=== PATIENT | female | born 1985 | race Caucasian/White ===

== ENCOUNTER 2018-11-07 05:45 | Observation (INO) | payer OTHER ==
[2018-11-04 10:41] LABS: BASOPHILS 0.1 % (0-2); EOSINOPHILS 1.3 % (0-7); HEMATOCRIT 43.5 % (36.0-48.0); HEMOGLOBIN 14.8 g/dL (12-16); IMMATURE GRANULOCYTES 0.1 % (0-5); LYMPHOCYTES 29.7 % (15-50); MCH 30.8 pg (26.0-34.0); MCV 90.6 fL (80.0-100.0); MEAN PLATELET VOLUME 10.6 fL (7.4-10.4); MONOCYTES 10.8 % (2-11); PLATELET COUNT 261 10x3/uL (130-400); RDW 13.1 % (11.5-14.5); WBC 8.2 10x3/uL (4.8-10.8)
[2018-11-04 10:51] LABS: CALC OSMOLALITY 274 mosm/kg (275-300); CALCIUM 9.3 mg/dL (8.5-10.1); CARBON DIOXIDE 28.8 mmol/L (21.0-32.0); CHLORIDE - SERUM 103 mmol/L (98-107); CREATININE - SERUM 0.7 mg/dL (0.6-1.3); GLUCOSE 80 mg/dL (74-106); SODIUM 138 mmol/L (136-145); UREA NITROGEN 13 mg/dL (7-18); eGFR NON AFRICAN AMERICAN > 90 mL/min (90-120)
[~2018-11-07] VITALS: Ht 165.1 cm; Wt 78.6 kg
[2018-11-07] VITALS (11 sets, daily range): BP systolic 94–125; BP diastolic 59–76; Ht 165.1 cm; Wt 78.6 kg
--- NOTE | ~2018-11-07 | OP ---
PATIENT NAME: TY NOBLES MEDICAL RECORD: [id number] :87 LOCATION:[id number] ADMISSION DATE: SURGEON: DOC CAGLE MD DATE OF OPERATION: 11/07/2018 PREOPERATIVE DIAGNOSES: 1. ABEL 2. 2. Dysfunctional uterine bleeding. POSTOPERATIVE DIAGNOSES: 1. ABEL 2. 2. Dysfunctional uterine bleeding. PROCEDURE: 1. Diagnostic laparoscopy. 2. Bilateral salpingectomy. 3. Total laparoscopic hysterectomy. SURGEON: Doc Cagle MD [employer]AL[employer] ASSURANCE SUPERVISOR CHASSIS: JESSIE Arrington. ANESTHETIC: General. FINDINGS: Uterus is slightly enlarged and boggy. The tubes and ovaries were unremarkable. What was visualized at the patient's upper abdominal anatomy and pelvic anatomy is unremarkable. SPECIMENS REMOVED: Uterus with cervix and bilateral tubes. SPECIMEN DISPOSITION: Pathology. ESTIMATED BLOOD LOSS: Less than or equal to 150 cc. FLUIDS: 2000 cc lactated Ringer's. URINE OUTPUT: 500 cc of clear urine. COMPLICATIONS: None. DRAINS: Alejo to gravity discontinued upon transfer to the finney. INDICATIONS: The patient is a 33-year-old female with a history of dysfunctional uterine bleeding using a Mirena IUD to treat the same. The patient has recently had colposcopy directed biopsy demonstrating ABEL 2. The patient has no future fertility desires and requests definitive treatment. DESCRIPTION OF PROCEDURE: After informed consent was assured, the patient was taken to the operating room where anesthetic was obtained. The patient was now prepped and draped after being placed in [facility] stir[facility]. The patient's legs were positioned and uterine manipulator placed after removal of the Mirena IUD. The legs are now dropped and attention was directed to the umbilicus where an incision was made to accommodate a 5-mm trocar, which was inserted and pneumoperitoneum developed. With the patient in steep Trendelenburg position, accessory ports were placed in the left and right lower quadrants. All sites OPERATIVE REPORT [id number] TY NOBLES were injected with 0.25% Marcaine without epinephrine. Using a grasper, the right tube was elevated and with a Thunderbeat coagulation cutter, the attachments of the tube to the adnexa was serially compressed, coagulated, and . This dissection was carried over the uterine ovarian ligaments and round ligaments. The anterior leaf of the broad ligament was opened and the bladder flap developed to the midline. The posterior tissues were dissected free of the vascular bundle and then the uterine vessels were compressed, coagulated, and . Attention was now directed to the left side where the left tube was elevated from the right and again removed from its attachments with the Thunderbeat coagulation cutter. The dissection again carried over the uteroovarian and round ligaments. The anterior leaf of the broad ligament was opened and the bladder flap now fully developed. The vessels of the left side are now compressed, coagulated, and at the level of the internal os. Dissection begins at the 6 o'clock and concludes at the 12. This was facilitated with palpation of the uterine manipulator cup. This was repeated on the contralateral side, this time carrying the dissection from the 12-6 o'clock position. The uterus was now pulled into the vagina and the pelvis irrigated. The uterus was now removed after the legs were positioned for the vaginal close. The cuff was assessed and a modified Benjamin stitch was placed. The cuff was now closed in anterior to posterior fashion with the last stitch being tied the modified Benjamin's, which has been tagged at this point. The cuff was inspected and adequate hemostasis has been achieved. Pneumoperitoneum was reestablished and visualization of the pelvis reveals a small amount of bleeding from the left ovary and this was addressed with the Thunderbeat coagulation cutter. After coagulating the bleeding site on the left ovary, the pelvis again was irrigated and irrigant removed. The pneumoperitoneum was released as the accessory ports were removed under direct visualization. Primary trocar was removed and all sites closed with subcuticular stitch. Sponge, lap, and needle counts correct times 2 at the close of this procedure. TRANSINT:[id number] Voice Confirmation ID: [id number] DOCUMENT ID: [id number] DOC CAGLE MD CC: [id number] DICTATION DATE: 11/07/18913 TURN OUT: 11/07/18 1036 REG [facility] [address] [place] [address]
[~2018-11-07 05:45] MED LIST: ALLEGRA D; TYLENOL #4 W/CO1 TAB PO; [UNRECOGNIZED DRUG - OTHER]
[2018-11-07 06:13] LABS: HCG URINE NEGATIVE (NEGATIVE)
--- NOTE | 2018-11-07 10:25 | NUR ---
RECEIVED PT FROM VIA STRETCHER TO ROOM 1278. PT TRANSFERS ONTO BED PER SELF. PT DROWSY, AAO X 3. VS NOTED. PT ON N/C 2 LITERS OF 02. PIV SITE CLEAR TO LEFT FOREARM. LR PLACED ON ALARIS PUMP AT 125 ML/HR. ARTIS TO GRAVITY DRAINING DARK, YELLOW URINE. 3 LAP INCISIONS WITH DERMABOND NOTED WITHOUT DRAINAGE OR SWELLING. SMALL AMT OF REDNESS NOTED. NO VAGINAL DISCHARGE NOTED. PERIPAD TO PERINEUM TO MONITOR. SCDS ON BLE. PUMP ON. NEG HOMANS' SIGN. PPP. NO EDEMA NOTED TO BLE. FAMILY AT BEDSIDE. PT STATES PAIN OF "7" ON 0-10 PAIN SCALE. SR UP X 2. CALL LIGHT IN REACH.
--- NOTE | 2018-11-07 10:35 | NUR ---
ARTIS DC'D WITH 300 ML OF DARK, YELLOW URINE NOTED IN BAG. PT SHALA WELL. SCDS ON BLE. PUMP ON.
--- NOTE | 2018-11-07 10:46 | NUR ---
ICE PACK OFFERED FOR INCISION. PT DECLINES AT THIS TIME. ICE WATER PROVIDED AND PT ENCOURAGED TO CONSUME SLOWLY.
--- NOTE | 2018-11-07 11:29 | NUR ---
PT LYING SUPINE IN BED. EYES CLOSED. RESP NON-LABORED. PT NOT DISTURBED TO ALLOW FOR REST. FAMILY IN ROOM WITH PT. LIGHTS OUT PER FAMILY.
--- NOTE | 2018-11-07 12:01 | NUR ---
PT C/O ABDOMINAL PAIN/BURNING OF "8" ON 0-10 PAIN SCALE. DILAUDID 2 MG GIVEN SIVP OVER 2 MINUTES.
--- NOTE | 2018-11-07 12:21 | NUR ---
PT LYING SUPINE IN BED. EYES CLOSED. RESP NON-LABORED. PT NOT DISTURBED TO ALLOW FOR REST. SR UPX 2. CALL LIGHT IN REACH.
--- NOTE | 2018-11-07 13:07 | NUR ---
DR CAGLE CALLS. ORDER RECEIVED TO MAKE PATIENT OBSERVATION.
--- NOTE | 2018-11-07 13:40 | NUR ---
PT OOB AND AMB TO BR. VOIDS LARGE AMT OF URINE FREELY WITHOUT DIFFICULTY. PT AMBULATES BACK TO BED. STEADY GAIT. PT SHALA WELL. SCDS BACK ON. O2 BACK ON AT 3L/MIN PER 92% O2 SAT.
--- NOTE | 2018-11-07 15:00 | NUR ---
DR CAGLE CALLS. INFORMED THAT PT DESIRES TO STAY OVERNIGHT. NO NEW ORDERS.
--- NOTE | 2018-11-07 16:01 | NUR ---
PT OOB AND AMB TO BR. VOIDS LARGE, UNMEASURED AMOUNT OF URINE. PT MISSED SPECIPAN. PERICARE DONE PER PT. PT AMBULATES BACK TO BED. SHALA ACTIVITY WELL. C/O NAUSEA.
--- NOTE | 2018-11-07 17:13 | NUR ---
PT SITTING UP IN BED. STATES CONSUMED VERY LITTLE OF SUPPER TRAY. STATES FAMILY IS BRINGING FOOD FROM HOME. STATES UNABLE TO SWALLOW MUCH MOUTH IS DRY. STATES NAUSEA COMES AND GOES. TORADOL 30 MG GIVEN SIVP OVER 2 MINUTES. PT INSTRUCTED ON MED. VERBALIZES UNDERSTANDING.
--- NOTE | 2018-11-07 17:20 | NUR ---
PT INSTRUCTED ON INCENTIVE SPIROMETER. PULLS 1000. O2 DOWN TO 1 LITER PER N/C.
--- NOTE | 2018-11-07 18:07 | NUR ---
PT OOB AND AMB TO BR. VOIDS 200 ML OF CLEAR, YELLOW URINE. PT AMBULATES PER SELF BACK TO BED. PIV CONVERTED TO SALINE LOCK. SITE CLEAR. FLUSHES EASILY WITH 10 ML NS. PT SHALA WELL.
--- NOTE | 2018-11-07 19:02 | NUR ---
PT REC'D IN BED AT THIS TIME. STATES PAIN IS A 5/10 AT THIS TIME. SALINE LOCK TO THE LEFT FOREARM AT THIS TIME. SITE CLEAR. LUNGS CLEAR, BS+ BUT HYPOACTIVE IN ALL QUADRANTS. INCISIONS TO ABDOEN X3. NO S/S OF INFECTION NOTED. PT DENIES FLATUS. SCDS ON AND FUNCTIONAL AT THIS TIME. NO ACUTE DISTRESS NOTED. SIDERAILS UP FOR SAFETY. CALL LIGHT IN PT REACH. Salvatore ROSA RN
--- NOTE | 2018-11-07 19:16 | NUR ---
PT MEDICATED WITH PERCOCET 1 TAB FOR PAIN LEVEL OF 5. WILL CONTINUE TO MONITOR. PT INFORMED THAT TORADOL PO WILL BEGIN AT 2300 AND PERCOCET IS ORDERED NEEDED. UNDERSTANDIONG VERBALIZED. PT INSTRUCTED TO AMBULATE TO ASSIST WITH PASS GAS. UNDERSTANDING VERBALIZED. Salvatore ROSA RN
--- NOTE | 2018-11-07 20:10 | NUR ---
PT SITTING UP IN BED AT THIS TIME. DENIES PAIN. Salvatore ROSA RN
--- NOTE | 2018-11-07 23:03 | NUR ---
PT AMBULATORY TO NURSES DESK REQUESTING FRESH ICE WATER,A [employer]-OTO[employer]-[place] SODA AND 2300 PAIN MEDICATION FOR PAIN 09/09. FRESH ICE WATER SERVED AND PAIN MEDICATION TO BE TAKEN TO PT'S ROOM FOR ADMIN.
--- NOTE | 2018-11-07 23:14 | NUR ---
PT MEDICATED W/10MG TORADOL AND 1 TAB PERCOCET 5/325MG FOR ABD PRESSURE AND ACHE. DENIES FURTHER NEEDS. VITAL SIGNS TAKEN. SEE FLOWSHEET.
--- NOTE | 2018-11-07 23:50 | NUR ---
ROUNDS MADE FOR PAIN REASSESSMENT. PT FOUND TO BE LYING IN LEFT LATERAL TILT W/HOB AT APPROX 70 DEGREE W/EYES CLOSED. RESP EVEN AND UNLABORED. PT APPEARS TO BE RESTING COMFORTABLY W/NO DISTRESS NOTED. PT LEFT UNDISTURBED AND PAIN REASSESSED USING FACE SCALE. RATED 2/10
--- NOTE | 2018-11-08 00:37 | NUR ---
PT AMBULATES TO NURSING STATION TO REQUEST SOMETHING TO EAT. SANDWICH TRAY, CHOCOLATE PUDDING AND COLA SERVED. NO REPORT OF PAIN AT PRESENT AND DENIES FURTHER NEEDS. PT AMBULATES BACK TO HER ROOM.
--- NOTE | 2018-11-08 02:20 | NUR ---
PT REC'D IN BED ASLEEP AT THIS TIME. NO DISRESS NOTED. Salvatore ROSA RN
--- NOTE | 2018-11-08 04:50 | NUR ---
PT RESTING COMFORTABLY AT THIS TIME WITHOUT COMPALITNS. Salvatore ROSA RN
--- NOTE | 2018-11-08 05:50 | NUR ---
VSS. PT MEDICATED AT THIS TIME WITH TORADOL 10 MG PO. PT STATES PAIN IS A 5. L SHELLEY RN
[2018-11-08 05:54] VITALS: BP 108/64
[2018-11-08] MEDS ORDERED: PERCOCET 7.5/321 TAB PO (06:24)
[2018-11-08] MEDS ORDERED: MOBIC7.5 MG PO (06:27)
[2018-11-08] MEDS ORDERED: NEURONTIN 300300 MG PO (06:28)
[2018-11-08 07:45] VITALS: BP 113/67
--- NOTE | 2018-11-08 07:45 | NUR ---
ASSESSMENT COMPLETED. PT DENIES PAIN OR DISCOMFORT AT THIS TIME. ABD SOFT TO TOUCH WITH BOWEL SOUNDS PRESENT X 4 AND PT CONFIRMS SHE IS PASSING GAS. QUESTIONS ASKED BY PT ABOUT WHEN/WHAT TIME SHE WOULD BE ABLE TO DISCHARGE, SHE STATES UNDERSTANDING THAT DR CAGLE WOULD ROUND THIS AM. DENIES ANY NEEDS AT THIS TIME. REGULAR DIET SERVED BY DIETARY. SIDE RAILS UP X 2 WITH CALL LIGHT IN REACH.
--- NOTE | 2018-11-08 08:07 | NUR ---
DISCHARGE ORDERS RECEIVED FROM DR CAGLE.
--- NOTE | 2018-11-08 08:31 | NUR ---
TO ROOM FOR DISCHARGE, PT STATES THAT HER MOM IS COMING TO PICK HER UP ASK THAT SHE CALL WHEN READY TO FINISH DISCHARGE. CALL LIGHT IN REACH WITH SIDE RAILS UP X 2. RATES PAIN AT 0/10 AT THIS TIME.
--- NOTE | 2018-11-08 09:05 | NUR ---
VERBAL AND WRITTEN DISCHARGE ORDERS GONE OVER WITH PT. SHE IS ALSO PROVIDED WITH WRITTEN SCRIPTS FOR PERCOCET 7.5, MOBIC 15MG AND NEUROTIN 300MG WITH INFO ON EACH MEDICATION. STATES HER UNDERSTANDING AND DENIES ANY QUESTIONS OR CONCERNS. PAIN MED GIVEN SCANNED TO EMAR. RATES PAIN AT 8/10 AT THIS TIME.
--- NOTE | 2018-11-08 09:20 | NUR ---
TAKEN OUT BY WHEELCHAIR, HOME BY PRIVATE VECHILE WITH FAMILY
== END 2018-11-08 09:30 | disposition home or self-care (01) ==
LOC: D.OPS 05:45 → D.PAN 07:30 → D.LD 09:55 → D.OPS 13:20 → OBSVTIME 13:20 → D.LD 13:20
PROVIDERS: ADMIT Obstetrics & Gynecology; ATTEND Obstetrics & Gynecology
DX: N87.1 Moderate cervical dysplasia (principal); N93.8 Other specified abnormal uterine and vaginal bleeding

== ENCOUNTER → 2019-07-18 16:18 | Outpatient (CLI) | payer OTHER ==
[2018-11-07 10:53] VITALS: BMI 28.8
[~2019-07-18 16:18] MED LIST changes: +MOBIC7.5 MG PO; +NEURONTIN 300300 MG PO; +PERCOCET 7.5/321 TAB PO
== END | disposition home or self-care (01) ==
LOC: D.RAD 16:18
PROVIDERS: ATTEND Nurse Practitioner Family
DX: R60.9 Edema, unspecified (principal); R52 Pain, unspecified